=== PATIENT | male | born 1935 | race Caucasian/White ===

== ENCOUNTER 2019-05-29 18:03 | Inpatient (IN) ==
[2019-05-29 18:31] LABS: URINE SOURCE CLEAN CATCH
[2019-05-29 18:49] LABS: BILIRUBIN URINE NEGATIVE (NEGATIVE); BLOOD URINE LARGE (NEGATIVE); COLOR BROWN; GLUCOSE URINE NEGATIVE (NEGATIVE); KETONE URINE NEGATIVE (NEGATIVE); LEUKOCYTES URINE LARGE (NEGATIVE); NITRITE URINE POSITIVE (NEGATIVE); PROTEIN URINE 100 mg/dL (NEGATIVE); SP GRAVITY URINE 1.017; TURBIDITY URINE TURBID (CLEAR); UR EPITHELIAL CELLS <10 /HPF (<10); URINE BACTERIA 3+ /HPF; URINE RBC TNTC /HPF (<10); URINE WBC TNTC /HPF (<10); UROBILINOGEN URINE NORMAL (NORMAL)
[2019-05-29 18:50] LABS: URINE CASTS NONE SEEN; URINE YEAST NONE SEEN
--- NOTE | 2019-05-29 20:04 | Diag Imaging Result Doc PS360 ---
CHEST-1 VIEW - 05/29/2019 INDICATION: sob COMPARISON: 05/28/2014 FINDINGS: The lungs are normally expanded and clear. Heart size and mediastinal contours are normal. No pneumothorax or pleural effusion. IMPRESSION: Negative exam. Electronically signed by Watson Contreras 05/29/2019 8:02 PM
[2019-05-29] MEDS: ROCEPHIN 1 GM in NS 50 ML IV SCH (20:18)
[2019-05-29 20:26] LABS: BASO# 0.06 X1000 (0.0-0.2); BASO% 0.4 % (0.0-0.8); EOS# 0.04 X1000 (0.0-0.7); EOS% 0.3 % (0.0-10.0); HEMATOCRIT 45.2 % (42.0-52.0); HEMOGLOBIN 14.4 g/dL (14.0-18.0); IMM GRAN# 0.03 X1000 (0.0-0.04); IMM GRAN% 0.2 % (0.0-0.5); LYMPH# 2.74 X1000 (1.2-3.4); LYMPH% 18.5 % (20.5-51.1); MCH 30.4 PG (27-31); MCHC 31.9 g/dL (33-37); MCV 95.4 FL (81-99); MONO# 1.21 X1000 (0.11-0.59); MONO% 8.2 % (1.7-9.3); MPV 9.8 FL (7.4-10.4); NEUT# 10.76 X1000 (1.4-6.5); NEUT% 72.4 % (42.2-75.2); PLT 361 X1000 (130-400); RBC 4.74 XMIL (4.7-6.1); RDW 13.4 % (11.5-14.5); WBC 14.84 X1000 (4.8-10.8)
[2019-05-29 20:30] LABS: INR 0.98; PROTIME 13.1 Seconds (11.0-16.0)
[2019-05-29 20:31] LABS: PTT 26.4 Seconds (22.3-41.8)
[2019-05-29 20:38] LABS: AGAP 14; ALB/GLOB RATIO 1.4; ALBUMIN 4.4 g/dL (3.5-5.0); ALKALINE PHOSPHATASE 80 U/L (32-122); BUN 16 mg/dL (8-22); CALCIUM 9.9 mg/dL (8.8-10.2); CHLORIDE 101 mmol/L (98-107); COSMO 285; CREATININE 1.1 mg/dL (0.7-1.2); ESTIMATED GFR > 60; GLUCOSE 115 mg/dL (70-104); GOT 25 U/L (10-34); GPT 27 U/L (10-44); POTASSIUM 5.1 mmol/L (3.5-5.1); SODIUM 142 mmol/L (136-145); TCO2 27 mmol/L (25-35); TOTAL PROTEIN 7.6 g/dL (6.3-8.3)
[2019-05-29 20:43] LABS: CK PROFILE 207 U/L (24-204)
[2019-05-29 21:13] LABS: CK INDEX 2.3 (0.0-2.5); CK-MB 4.75 ng/mL (0.0-5.0)
--- NOTE | 2019-05-29 21:17 | PROVIDER DOCUMENTATION ---
This chart was entered by Anthony Arredondo Scribe, acting as scribe for Terri Ernandez MD. HPI-Male Problem <KatlinRon CunninghamTian - Last Filed: 05/29/19 20:58> - General Source: patient, family - History of Present Illness-Male Radiation: reports: none Quality of Pain: reports: none Severity in ED: reports: mild Onset/Duration: reports: this afternoon Timing: reports: still present Urinary Symptoms: reports: dysuria, frequency, hematuria, hesitancy, retention Associated Symptoms: reports: denies symptoms Similar Symptoms Previously?: Yes Recently seen or treated by another doctor?: Yes <Terri Ernandez - Last Filed: 05/29/19 21:17> - General Chief Complaint: UTI Symptoms Stated Complaint: BLOOD IN URINE Time Seen by Provider: 05/29/19 19:13 Allergies/Adverse Reactions: Patient Allergies Allergy/AdvReac Type Severity Reaction Status Date / Time No Known Allergies Allergy Verified 03/15/18 10:24 Home Medications: Home Medication List Medication Instructions Recorded Confirmed Last Taken Type Glucosamine 2,000 mg PO HS 09/08/12 05/29/19 03/14/18 History RAMIpril [Altace] 10 mg PO HS 09/08/12 05/29/19 03/14/18 History SIMVAstatin [Zocor] 20 mg PO QHS 09/08/12 05/29/19 03/14/18 History Multivitamins/Minerals [Centrum 1 each PO HS 03/15/18 05/29/19 03/14/18 History Silver] - History of Present Illness-Male Nature of Presenting Problem: Pt is a 84 yom who presents to the ED with a CC of UTI symptoms. Pt reports he has had a UTI for approximately eleven days. Pt reports he just finished a 10 day prescription of ciprofloxacin for a previous UTI and states his symptoms have not improved. Pt reports he called Dr. Carlson and states it was almost time for his office to close so he referred the pt to come to the ED. Pt complains of dysuria, hematuria, urinary frequency, and urinary hesitancy. (Terri Ernandez) Review of Systems - Adult - REVIEW OF SYSTEMS - ADULT Constitutional: reports: see HPI Eyes: reports: no symptoms reported Ears, Nose, Mouth & Throat: reports: no symptoms reported Cardiovascular: reports: no symptoms reported Respiratory: reports: no symptoms reported Gastrointestinal: reports: no symptoms reported Genitourinary: reports: see HPI, dysuria, frequency, frequent UTI's, hematuria, urinary retention Musculoskeletal: reports: no symptoms reported Integumentary: reports: no symptoms reported Neurological: reports: no symptoms reported Psychiatric: reports: no symptoms reported Endocrine: reports: no symptoms reported Hematologic/Lymphatic: reports: no symptoms reported Allergic/Immunologic: reports: no symptoms reported All Other Systems: Reviewed and Negative <Terri Ernandez - Last Filed: 05/29/19 21:17> Past History - Adult - PAST MEDICAL HISTORY-ADULT Review of Records: reports: Old Records Reviewed, Nursing Assessment Review, Medications Reviewed, Social history reviewed & non-contributory. Major Childhood Illnesses: reports: denies history Cardiovascular: reports: HTN Respiratory: reports: denies history Gastrointestinal: reports: denies history Obstetrical/Gynecological: reports: denies history Genitourinary: reports: prostate cancer Musculoskeletal: reports: denies history Neurological: reports: denies history Endocrine/Immune: reports: denies history Other Conditions: reports: denies history - PRIOR SURGERIES/PROCEDURES Surgical/Procedure History: reports: orthopedic (extremity) - IMMUNIZATION STATUS Childhood Immunizations: See Nurse Assessment Flu Vaccine: See Nurse Assessment - FAMILY HISTORY Family History: reviewed, not pertinent - SOCIAL HISTORY Smoking: greater than 1 pack/day <Terri Ernandez - Last Filed: 05/29/19 21:17> Physical Exam-General - PHYSICAL EXAM-ADULT Initial Vital Signs Reviewed: Yes - CONSTITUTIONAL General Appearance: alert, mild distress - EYES Eyes: PERRL/EOMI, pink conjunctivae - HEAD, EARS, NOSE, MOUTH & THROAT HENMT: normocephalic/atraumatic, moist mucous membranes - NECK Neck: non-tender, full range of motion - RESPIRATORY Respiratory: chest non-tender, lungs clear, normal breath sounds - CARDIOVASCULAR Cardiovascular: normal peripheral pulses, regular rate, rhythm, no edema - GASTROINTESTINAL (ABDOMEN) Abdominal Exam: non tender, soft - MUSCULOSKELETAL Extremity: normal range of motion, non-tender - SKIN Integumentary: normal color, warm/dry - NEUROLOGIC Neurologic: grossly normal, no motor/sensory deficits - PSYCHIATRIC Psych/Mental Status: normal mood/affect, normal thought content, normal thought process, oriented x 3 <Terri Ernandez - Last Filed: 05/29/19 21:17> Progress - PLAN OF CARE/RESULTS Result Diagrams: 05/29/19 20:00 05/29/19 20:00 - CONSULTS/PCP/HOSPITALIST Notification #1 *Consult/PCP/Hospitalist*: Dr Richter Time Discussed: 20:49 Reason/Comments: UTI Consult Disposition: Admit (admit to hospitalist luigi, Dr Reynolds will see in the morning) #2 Consult: Dr Rios Time Discussed: 20:49 Reason/Comments: UTI Consult Disposition: Admit <Ron Dalal - Last Filed: 05/29/19 20:58> - PLAN OF CARE/RESULTS Result Diagrams: 05/29/19 20:00 05/29/19 20:00 - XRAY 1 XRAY: Bilateral XRAY Study: Chest Impression: See EMR Report ( CHEST-1 VIEW - 05/29/2019 INDICATION: sob COMPARISON: 05/28/2014 FINDINGS: The lungs are normally expanded and clear. Heart size and mediastinal contours are normal. No pneumothorax or pleural effusion. IMPRESSION: Negative exam. Electronically signed by Watson Contreras 05/29/2019 8:02 PM 05/29/192001 Interpreting Physician: Watson Contreras MD Dictated Date/Time: 05/29/191958 cc: Ron Dalal; Grupo Reynolds MD) <Terri Ernandez - Last Filed: 05/29/19 21:17> - PLAN OF CARE/RESULTS Progress/Plan/Lab Results: Vital Signs - 8 hr 05/29/19 18:13 Temperature 98.6 F Pulse Rate 81 Respiratory Rate 15 Blood Pressure 146/81 O2 Sat by Pulse Oximetry 100 Laboratory Results - last 24 hr 05/29/19 05/29/19 05/29/19 18:25 20:00 20:00 WBC 14.84 H RBC 4.74 Hgb 14.4 Hct 45.2 MCV 95.4 MCH 30.4 MCHC 31.9 L RDW Std Deviation 13.4 Plt Count 361 MPV 9.8 Immature Gran % (Auto) 0.2 Neut % (Auto) 72.4 Lymph % (Auto) 18.5 L [place] % (Auto) 8.2 Eos % (Auto) 0.3 Baso % (Auto) 0.4 Immature Gran # (Auto) 0.03 Neut # (Auto) 10.76 H Lymph # (Auto) 2.74 [place] # (Auto) 1.21 H Eos # (Auto) 0.04 Baso # (Auto) 0.06 PT INR PTT (Actin FS) Sodium 142 Potassium 5.1 Chloride 101 Carbon Dioxide 27 Anion Gap 14 BUN 16 Creatinine 1.1 Estimated GFR/1.73 m2 > 60 BUN/Creatinine Ratio 15 Glucose 115 H Calculated Osmolality 285 Calcium 9.9 Total Bilirubin 0.50 AST 25 ALT 27 Alkaline Phosphatase 80 Creatine Kinase 207 H Creatine Kinase Index 2.3 CK-MB (CK-2) 4.75 Troponin T Total Protein 7.6 Albumin 4.4 Globulin 3.2 Albumin/Globulin Ratio 1.4 Plasma Lactate Urine Source CLEAN CATCH Urine Color BROWN Urine Turbidity TURBID Urine pH 6.0 Ur Specific [employer] 1.017 Urine Protein 100 A Ur Glucose (Stick) NEGATIVE Ur Ketones (Stick) NEGATIVE Urine Blood LARGE A Urine Nitrite POSITIVE A Urine Bilirubin NEGATIVE Urobilinogen Dipstick NORMAL Urine Leukocytes LARGE A Urine WBC (Auto) TNTC A Urine RBC (Auto) TNTC A U Epithel Cells (Auto) <10 Urine Bacteria (Auto) 3+ Urine Crystals Not Reportable Small Round Cells Not Reportable Urine Casts NONE SEEN Urine Yeast-like Cells NONE SEEN 05/29/19 05/29/19 05/29/19 20:00 20:00 20:00 WBC RBC Hgb Hct MCV MCH MCHC RDW Std Deviation Plt Count MPV Immature Gran % (Auto) Neut % (Auto) Lymph % (Auto) [place] % (Auto) Eos % (Auto) Baso % (Auto) Immature Gran # (Auto) Neut # (Auto) Lymph # (Auto) [place] # (Auto) Eos # (Auto) Baso # (Auto) PT 13.1 INR 0.98 PTT (Actin FS) 26.4 Sodium Potassium Chloride Carbon Dioxide Anion Gap BUN Creatinine Estimated GFR/1.73 m2 BUN/Creatinine Ratio Glucose Calculated Osmolality Calcium Total Bilirubin AST ALT Alkaline Phosphatase Creatine Kinase Creatine Kinase Index CK-MB (CK-2) Troponin T < 0.010 Total Protein Albumin Globulin Albumin/Globulin Ratio Plasma Lactate 1.6 Urine Source Urine Color Urine Turbidity Urine pH Ur Specific [employer] Urine Protein Ur Glucose (Stick) Ur Ketones (Stick) Urine Blood Urine Nitrite Urine Bilirubin Urobilinogen Dipstick Urine Leukocytes Urine WBC (Auto) Urine RBC (Auto) U Epithel Cells (Auto) Urine Bacteria (Auto) Urine Crystals Small Round Cells Urine Casts Urine Yeast-like Cells Orders Category Date Time Status Cardiac Monitoring DIRECTED Care 05/29/19 19:41 Active IV Insertion ORDERED Care 05/29/19 19:41 Active Notify MD of + Sepsis Screen NOW Care 05/29/19 19:41 Active Notify Physician As Ordered Care 05/29/19 19:41 Active CHEST-1 VIEW [RAD] Stat Exams 05/29/19 19:41 Completed BLOOD CULTURE [BLDCUL] Stat Lab 05/29/19 20:02 Results CBC WITH DIFF [HEME] Stat Lab 05/29/19 20:00 Completed CK PROFILE [SP CHEM] Stat Lab 05/29/19 20:00 Completed COMPREHENSIVE METABOLIC PANEL [CHEM] Stat Lab 05/29/19 20:00 Completed LACTATE, PLASMA [CHEM] Q3H Lab 05/29/19 20:00 Completed PROTIME WITH INR [COAG] Stat Lab 05/29/19 20:00 Completed PTT [COAG] Stat Lab 05/29/19 20:00 Completed TROPONIN T Stat Lab 05/29/19 20:00 Completed URINALYSIS W/POSS RFLX CULT [URINALYSIS] Stat Lab 05/29/19 18:25 Completed URINE CULTURE [RM] Routine Lab 05/29/19 20:08 Received URINE MANUAL MICROSCOPIC [URINALYSIS] Stat Lab 05/29/19 18:25 Completed CefTRIAXONE [Rocephin] 1 gm Med 05/29/19 20:15 Active 0.9% Sodium Chloride Inj [Ns] 50 ml IV Q24H Oxygen Device Stat Oth 05/29/19 19:41 Active patient was seen by myself and Dr Ernandez. patient verbalizes an understanding of POC and treatment rendered here today. (Ron Dalal) Saw patient with DIGITAL EDITOR Octavio Dalal. Patient with recurrent UTI. Last urine cx only had 10-20k colony count and susceptible to levaquin. Just came off Cipro. Will need to admit for failure of outpatient treatment and WBC to 15k. LA normal. Vitals stable with no SIRS criteria. Octavio Dalal spoke to hospitalist greenstone polisher operator and he was accepted for admission. Urine cx pending. Further orders to be placed by their team. (Terri Ernandez) Departure - Departure Time of Disposition Decision: 20:50 Certified Medical Emergency: Emergent <Ron Dalal - Last Filed: 05/29/19 20:58> - Departure Date of Disposition Decision: 05/29/19 Certified Medical Emergency: Emergent - Critical Care Note This patient required my direct & personal management of CC.: No <Terri Ernandez - Last Filed: 05/29/19 21:17> - Departure DIAGNOSIS: Recurrent UTI (urinary tract infection) Disposition: ADMITTED INPATIENT 09 Condition: Critical Additional Instructions: ED Follow Up Instructions: You have been treated by a care provider in the Emergency Department. These instructions are being provided to you so you can have an understanding of how to care for yourself upon discharge. Upon discharge from the Emergency Department, you are responsible for making arrangements for follow-up care by a physician of your choice. Take all prescribed medications as directed. Return to the Emergency Department immediately for any new or worsening symptoms. You may call the Physician Referral phone number at [phone] to obtain a list of Physicians who are taking new patients. Referrals and Follow-Ups: Grupo Reynolds MD [Primary Care Provider] - Attestation - Physician/ VALERIO Attestation Patient care was provided by Advanced Practice Provider:: Yes Advanced Practice Provider:: Ron Dalal Advanced Practice Provider documentation review:: The Mid-level provider documentation, treatment plan and medical decision making was reviewed by the physician who agrees with all treatment and medical decision making by the P. <Ron Dalal - Last Filed: 05/29/19 20:58> - Physician/ VALERIO Attestation Patient care was provided by Advanced Practice Provider:: No The physician spent face to face time with patient:: Yes Advanced Practice Provider documentation review:: Supervising physician onsite and consulted in the evaluation and care of this patient. The physician did have a face to face encounter with the patient. <Terri Ernandez - Last Filed: 05/29/19 21:17> This chart was documented by the indicated scribe, (Anthony Arredondo Scribe) and accurately reflects the services I performed and decisions made by me, Terri Ernandez MD, as attested by the provider's signature.
[2019-05-29] MEDS ORDERED: ZOFRAN IV PRN (23:59)
[2019-05-29] MEDS ORDERED: NS 500 ML IV ONE (23:59)
[2019-05-29] MEDS ORDERED: TYLENOL PO PRN (23:59)
--- NOTE | 2019-05-30 02:15 | HISTORY AND PHYSICAL ---
PRIMARY CARE PROVIDER: Jere Agosto MD CHIEF COMPLAINT: Blood in urine. HPI: Mr. Vivar is an 84-year-old male who and seen Dr. Agosto around 2 weeks ago. He just finished up a 10-day prescription of ciprofloxacin. Stated that he had blood in his urine today. He had called Dr. Carlson who referred him to come into the emergency room. He had complains of dysuria, hematuria, urinary frequency and urinary hesitancy. He does have a past medical history of prostate cancer status post TURP, hypertension, and prediabetes. Urine collected in the emergency room showed a nitrite positive leuk esterase positive urinary tract infection. He will be admitted for further evaluation and treatment. PAST MEDICAL HISTORY: See HPI. PREVIOUS SURGICAL HISTORY: Prostate biopsy, TURP, right index finger amputation, sinus surgery, back surgery. SOCIAL HISTORY: Lives with his . Smokes 2-3 cigarettes per day. No alcohol. No illicit drugs. FAMILY HISTORY: Mother and father both had diabetes mellitus. Father from myocardial infarction. Mother from nonspecific cancer. ALLERGIES: NO KNOWN DRUG ALLERGIES. HOME MEDICATIONS: 1. Glucosamine 2000 mg p.o. at bedtime. 2. Centrum multivitamin 1 p.o. at bedtime. 3. Ramipril 10 mg p.o. at bedtime. 4. Simvastatin 20 mg p.o. at bedtime. REVIEW OF SYSTEMS: A 14-point review of systems conducted with the patient. Pertinent positives listed above in the HPI. All other systems reviewed and found to be negative. PHYSICAL EXAMINATION: VITAL SIGNS: Temperature 98.6, pulse 81, respirations 15, blood pressure 137/81, oxygen saturation 95% on room air. GENERAL: Pleasant 84-year-old male lying in the ER stretcher. Answers all questions appropriately. He is alert and oriented x3. is at bedside and very attentive. HEENT: Head is atraumatic, normocephalic. Pupils equal, round, reactive to light. Extraocular eye movements intact. Sclera is anicteric. Conjunctiva is pink. Oral mucosa is moist. NECK: Supple, no JVD, no thyromegaly. Trachea is midline. No cervical lymphadenopathy. CARDIAC: S1, S2 appreciated. No murmurs, gallops, rubs. LUNGS: Clear to auscultation bilaterally. No rhonchi, wheezes, rales. Symmetric rise and fall respirations. ABDOMEN: Soft, nondistended, nontender. Bowel sounds present all 4 quadrants. Normoactive. No pulsatile masses or organomegaly. BACK: No CVA tenderness. No vertebral tenderness. EXTREMITIES: No clubbing, cyanosis, or edema. 2+ pedal pulses. NEUROLOGICAL: Alert and oriented x3. No focal neuro deficits. Otherwise nonfocal examination. DIAGNOSTIC DATA: Chest x-ray grossly normal. LABORATORY DATA: WBC 14.84, hemoglobin 14.4, hematocrit 45.2, platelet count 361,000. Coags within normal limits. Sodium 142, potassium 5.1, chloride 101, carbon dioxide 27, BUN 16, creatinine 1.1, glucose 115. CK 207. Urine nitrite positive, positive for hematuria, leuk esterase positive with too numerous to count WBCs and 3+ bacteria. ASSESSMENT AND PLAN: 1. Urinary tract infection with failed outpatient treatment. Will give Rocephin 1 gram IV q.24h. Urine cultures are pending. 2. Hypertension. Continue home medications. 3. Hyperlipidemia. Continue statin. 4. Mild hyperglycemia. Patient states that he is prediabetic. Check hemoglobin A1c. Place on diabetic diet. 5. Further recommendations per patient's clinical course. Dictated by PHILIP Giles for Gary Riso MD cc: PHILIP Giles MD Scott A. Matthews, MD Stephen W. Harbin, MD Patient presents with hematuria. He failed OP treatment for uti. UA shows a picture of uti. His past medical history is significant for prostate ca , TURP, prediabetes, hypertension. I agree with the assessment and plan of the HAND BLOCKER. Dr.Okinedo GANDARA
--- NOTE | 2019-05-30 12:39 | PROGRESS NOTE ---
DATE: 05/30/2019 SUBJECTIVE: The patient is overall feeling some better. He has not noticed any gross hematuria earlier today. OBJECTIVE: Vitals: Afebrile, pulse 65, respirations 20, blood pressure 142/63, O2 saturation on room air 98%. CV: RRR. Lungs: Clear. Back: No CVA tenderness. Abdomen: Nontender, nondistended. Extremities: No edema. Neurologic: Nonfocal. Cranial nerves intact. LABORATORY DATA: Laboratory data reviewed from admission showing white count of 14,000 with 72% neutrophils, hemoglobin 14.4, platelets 361,000. CMP is unremarkable. Lactate 1.6. TSH 3.07. A1c 6.0. Urine cultures growing out gram-negative rods this occasion, whereas 2 weeks ago we treated him with Cipro and he only grew out group B strep at that time, which was sensitive to Levaquin and quinolones. ASSESSMENT: 1. Gram-negative UTI. 2. History of prostate cancer, followed by Dr. Carlson. 3. Hypertension. 4. Hyperlipidemia. 5. Diabetes mellitus, diet controlled. PLAN: Continue low-dose IV fluids. Continue his home medications. We will ambulate the patient and continue pneumatic compression hose. Continue IV Rocephin. He received one dose last night, will get another dose this evening. Continue to follow the cultures. If he does well, likely discharge tomorrow. Continue to follow blood cultures at this time. cc: Grupo Reynolds MD
[2019-05-30] MEDS: ZOCOR PO SCH (20:09)
[2019-05-30] MEDS: CENTRUM SILVER PO SCH (20:09)
[2019-05-30] MEDS: ALTACE PO SCH (20:09)
[2019-05-30] MEDS: GLUCOSAMINE PO SCH (20:09)
[2019-05-30] MEDS: ROCEPHIN 1 GM in NS 50 ML IV SCH (20:10)
[2019-05-31 07:07] LABS: BASO# 0.06 X1000 (0.0-0.2); BASO% 0.5 % (0.0-0.8); EOS# 0.08 X1000 (0.0-0.7); EOS% 0.7 % (0.0-10.0); HEMATOCRIT 42.2 % (42.0-52.0); HEMOGLOBIN 13.6 g/dL (14.0-18.0); IMM GRAN# 0.03 X1000 (0.0-0.04); IMM GRAN% 0.3 % (0.0-0.5); LYMPH# 2.68 X1000 (1.2-3.4); LYMPH% 24.6 % (20.5-51.1); MCH 30.8 PG (27-31); MCHC 32.2 g/dL (33-37); MCV 95.7 FL (81-99); MONO# 0.97 X1000 (0.11-0.59); MONO% 8.9 % (1.7-9.3); MPV 9.8 FL (7.4-10.4); NEUT# 7.09 X1000 (1.4-6.5); PLT 315 X1000 (130-400); RBC 4.41 XMIL (4.7-6.1); RDW 13.3 % (11.5-14.5); WBC 10.91 X1000 (4.8-10.8)
[2019-05-31 07:19] LABS: AGAP 13; BUN 17 mg/dL (8-22); CALCIUM 9.5 mg/dL (8.8-10.2); CHLORIDE 99 mmol/L (98-107); COSMO 275; ESTIMATED GFR > 60; GLUCOSE 124 mg/dL (70-104); POTASSIUM 4.9 mmol/L (3.5-5.1); SODIUM 136 mmol/L (136-145); TCO2 24 mmol/L (25-35)
--- NOTE | 2019-05-31 09:08 | PROGRESS NOTE ---
DATE: 05/31/2019 SUBJECTIVE: Patient has redeveloped pronounced gross hematuria. He is having some urinary hesitancy as well as some clots are being passed. OBJECTIVE: Afebrile. Vital signs stable.CV: RRR. No murmur. Lungs: CTA. Abdomen: Nontender. Back: No CVA tenderness. Extremities: No calf tenderness, cords, or edema. Neurologic: Cranial nerves are intact. No focal deficits. LABORATORY: Urine cultures growing out Escherichia coli sensitive to Cefazolin and Macrobid, not sensitive to quinolones. White count has decreased from 14.8 to 10.9, hemoglobin 13.6, and platelets 315,000. PT and PTT normal. BMP normal. Creatinine 1.0. ASSESSMENT: 1. Escherichia coli UTI. 2. Gross hematuria. 3. Known prostate cancer on observation therapy per Dr. Carlson. 4. Hypertension. 5. Hypercholesterolemia. 6. Type 2 diabetes mellitus, diet controlled. PLAN: Continue IV Rocephin and low-dose IV fluids. We will ask Dr. Carlson to see the patient about the gross hematuria for recommendations. If he feels appropriate, might be able to discharge this evening potentially if he has no plans that prohibit this. cc: Grupo Reynolds MD
--- NOTE | 2019-05-31 19:28 | CONSULTATION ---
DATE OF CONSULTATION: 05/31/2019 ATTENDING AND REFERRING PHYSICIAN: Dr. Reynolds. CHIEF COMPLAINT: Hematuria. HISTORY OF PRESENT ILLNESS: This 84-year-old male states he had a several day history of hematuria. He came to the emergency room where a urine culture revealed E. coli, and he was admitted. His urine cleared yesterday, but then early this morning he again started passing clots. He has a history of adenocarcinoma of the prostate, Felda grade 3 + 3, that was just in a very small focus of the prostate. He is on active surveillance and has been for nearly 3 years. His latest PSA in November 2018 was 10.2. This is stable. The patient has a long history of cigarette use. He states that about 30 years ago, he had blood in his urine and had some type of surgery that he does not recall, but thinks it was a TURP. PAST MEDICAL HISTORY: 1. Prostate cancer, on active surveillance. 2. Hypertension. 3. Elevated cholesterol. CURRENT MEDICATIONS: Documented in the chart and does not include any anticoagulants, other than an aspirin (81 mg) a day. PAST SURGICAL HISTORY: 1. Right TKA. 2. Prostate biopsies times 4, the last in October 2017 as part of the active surveillance protocol. 3. Right index finger amputation. 4. Sinus surgery. 5. Lower back surgery. SOCIAL HISTORY: Denies tobacco use, but does smoke cigarettes. ALLERGIES: No known drug allergies. REVIEW OF SYSTEMS: Usually in good health. He denies any problems with diabetes, strokes, seizures, recent pulmonary or bowel problems. PHYSICAL EXAMINATION: General: A normally developed, well nourished, age apparent, white male, oriented in all ways and cooperative. HEENT: Normal for age. Lungs: Clear. Cardiovascular: Regular rate and rhythm. Abdomen: Mildly protuberant, soft, nontender. No hepatosplenomegaly or masses. Normal bowel sounds. : Normal male. Both testes down. Scrotal exam is normal. Rectal: Deferred until surgery. Extremities: No clubbing, cyanosis, or edema. Neurologic: No focal deficits. LABORATORY EVALUATION: He has a white count of 10.9, a hemoglobin of 13.6, hematocrit of 42.2, and platelets are 315,000. Serum electrolytes are normal. BUN 17, creatinine 1.0. Urine culture grew E coli that is sensitive to cephalosporins, and he is on Rocephin. IMPRESSION: 1. Gross hematuria. 2. Urinary tract infection. 3. Long history of tobacco use. 4. History of prostate cancer, on active surveillance. PLAN: 1. Cystoscopic exam, clot irrigation if needed. 2. Bilateral retrograde ureteral pyelograms and bladder biopsies as needed. 3. The planned procedure, benefits versus risks, possible complications, including, but not limited to, continued bleeding, infection, not finding an abnormality, finding bladder tumors with need for further treatment, was discussed. They seemed to understand and desired to proceed. cc: MD Grupo Jones MD
[2019-05-31] MEDS: ROCEPHIN 1 GM in NS 50 ML IV SCH (20:31)
[2019-05-31] MEDS: CENTRUM SILVER PO SCH (20:32)
[2019-05-31] MEDS: ZOCOR PO SCH (20:32)
[2019-05-31] MEDS: GLUCOSAMINE PO SCH (20:32)
[2019-05-31] MEDS: ALTACE PO SCH (20:33)
[2019-06-01] MEDS ORDERED: GENTAMICIN ONE (07:18)
[2019-06-01] MEDS ORDERED: DIPRIVAN 1% ONE (07:21)
[2019-06-01] MEDS ORDERED: XYLOCAINE-MPF 2% ONE (07:21)
[2019-06-01] MEDS ORDERED: EPHEDRINE ONE (07:35)
[2019-06-01] MEDS ORDERED: SODIUM CHLORIDE 0.9% 10 ML ONE (07:35)
[2019-06-01] MEDS ORDERED: ZOFRAN ONE (07:44)
--- NOTE | 2019-06-01 08:24 | Diag Imaging Result Doc PS360 ---
EXAM: RETROGRADES 2 OR 3 FILMS HISTORY: BLADDER TUMOR, HEMATURIA, UTI TECHNIQUE: 37 films submitted COMPARISON: None. FINDINGS: Early films have retrograde filling of the left ureter. No obstruction to retrograde flow. No filling defect or stricture. Normal distention to the renal pelvis and calyces. Later films have retrograde filling of the right ureter. No obstruction to retrograde flow. No filling defect or stricture. Normal distention of the renal pelvis and calyces. Normal drainage. IMPRESSION: Normal retrograde exam. Electronically signed by Coy Cleveland 06/01/2019 8:21 AM
[2019-06-01] MEDS: PERIDEX MT SCH ×2 (09:02→20:42)
--- NOTE | 2019-06-01 17:10 | PROGRESS NOTE ---
DATE: 06/01/2019 SUBJECTIVE: Patient without complaints. He had cystoscopy earlier today with findings of a kidney stone by report. Blood cultures x2 have remained negative. Urine culture grew out Escherichia coli sensitive to cefazolin and Macrobid. OBJECTIVE: Afebrile. Vital signs stable.Cardiovascular: RRR. Lungs: Clear. Abdomen: Nontender, nondistended. Extremities: No calf tenderness, cords, or edema. Neurologic: Cranial nerves are intact. No focal deficits. Moves all extremities well. LABORATORY DATA: Lab data from yesterday reviewed. ASSESSMENT: 1. Escherichia coli urinary tract infection. 2. Gross hematuria secondary to kidney stone found today on cystoscopy per Dr. Carlson. 3. Known prostate cancer, on observation therapy per Dr. Carlson. 4. Hypertension. 5. Hypercholesterolemia. 6. Diet-controlled type 2 diabetes mellitus. PLAN: Continue IV Rocephin, low-dose IV fluids. Prabhakar catheter is in place per Dr. Carlson. Dr. Carlson has recommended the patient remain in the hospital overnight with possible discharge as early as tomorrow. cc: Grupo Reynolds MD
--- NOTE | 2019-06-01 17:58 | OPERATIVE NOTE ---
PROCEDURE DATE: 06/01/2019 SURGEON: Az Carlson MD PREOPERATIVE DIAGNOSIS: 1. Gross hematuria with clots. 2. Enlarged prostate with obstructive voiding. 3. History of prostate cancer on active surveillance. POSTOPERATIVE DIAGNOSIS: 1. Gross hematuria with clots. 2. Enlarged prostate with obstructive voiding. 3. History of prostate cancer on active surveillance. PROCEDURE PERFORMED: Cystoscopic exam, clot irrigation, bilateral retrograde ureteral pyelograms, cystolitholapaxy, cold cup biopsies and transurethral resection of prostate nodules. ANESTHESIA: General via laryngeal mask. FINDINGS: Cystoscopic exam: Urethra-greater than 21 [place] without stricture. Prostate-status post TURP with marked regrowth of lateral lobes, and nodules. There was a stone encrusted nodule at the 12 o'clock and 9 o'clock position. There was a large stone in the bladder (about 2 cm). There were grade 3 trabeculations, small cellules and diverticula, no papillary lesions. Rectal exam reveals a prostate that is firm but no nodules, about 60 to 70 g. INDICATION FOR PROCEDURE: This 84-year-old male with history of prostate cancer on active surveillance for the last 3 years developed intermittent gross hematuria. His urine culture grew E. coli. He has been on antibiotics and his urine initially cleared but then he started having bleeding again. He is not anticoagulated. DESCRIPTION OF PROCEDURE: After informed consent was obtained the patient, him receiving IV antibiotics, he was taken the main OR cystoscopy room, placed in the supine position. General anesthesia via laryngeal mask was achieved. He was then placed in the low lithotomy position and prepped and draped in the usual sterile fashion for cystoscopic exam. A 21-[place] cystoscope was passed the patient's urethra, prostate, and in bladder, findings noted above. The clots were irrigated from the bladder. When the bladder was clear an 8-[place] cone-tipped catheter was passed through the cystoscope, engaged left ureteral orifice, contrast was injected. Right side was accomplished similarly. Again, there were no filling defects on either side but there was significant J-hooking of the distal ureters. The 8-[place] cone-tipped catheter was removed. The grasping forceps were placed and the large stone in the bladder was crushed and removed from the bladder. After the stone was removed the cold cup biopsy forceps were placed and a cold cup biopsy from the trigone and proximal prostatic urethra was taken and sent to Pathology in separate containers. The bladder was distended, cystoscope was removed and a 25-[place] continuous flow resectoscope sheath was placed. A thin gyrus loop electrode was placed and the nodule at the 9 o'clock position that was stone encrusted was resected and sent to Pathology in 1 container and the large nodule at the 12 o'clock position of the bladder neck was resected and sent to Pathology in its own container. Hemostasis was achieved from all excision sites and biopsy sites with the electrocautery. At completion, both ureteral orifices were intact. The bladder was left distended. The resectoscope was removed. A 22-[place], 3-way Prabhakar catheter was passed through the patient's urethra and into the bladder. The irrigation port was plugged. 20 mL of sterile water were placed in the Prabhakar's balloon. The efflux was clear. Rectal exam was performed. Estimated blood loss was about 1 mL during the case. He tolerated the procedure well, was taken to recovery room in good condition. cc: MD Grupo Jones MD
[2019-06-01] MEDS: GLUCOSAMINE PO SCH (20:42)
[2019-06-01] MEDS: CENTRUM SILVER PO SCH (20:42)
[2019-06-01] MEDS: ALTACE PO SCH (20:42)
[2019-06-01] MEDS: ROCEPHIN 1 GM in NS 50 ML IV SCH (20:43)
[2019-06-01] MEDS: ZOCOR PO SCH (20:43)
[2019-06-01] MEDS ORDERED: FLOMAX PO SCH (21:00)
[2019-06-02] MEDS: PERIDEX MT SCH (10:49)
[2019-06-02 11:46] VITALS: BP 127/60
--- NOTE | 2019-06-02 14:06 | DISCHARGE SUMMARY ---
ADMISSION DATE: 05/30/2019 DISCHARGE DATE: 06/02/2019 DIAGNOSES: 1. Complicated Escherichia coli urinary tract infection. 2. Gross hematuria with clots thought multifactorial related to prostate cancer, large bladder stone, urinary tract infection. 3. Prostate cancer followed by Dr. Carlson on expectant therapy. 4. Hypertension. 5. Hypercholesterolemia. 6. Type 2 diabetes, diet-controlled. CONSULTANTS: Az Carlson MD, Urology. PROCEDURES: 1. Chest x-ray, negative exam. 2. Retrograde pyelogram, normal. 3. Cystoscopic exam with clot irrigation, bilateral retrograde ureteral pyelograms, cystolitholapaxy, cold cut biopsies, and TURP of prostate nodules. REASON FOR ADMISSION AND HOSPITAL COURSE: The patient is an 84-year-old white male, came in with gross hematuria. He had just completed a 10 day course of Cipro for group B Strep UTI diagnosed about 2 weeks prior to this admission outpatient. He is followed by Dr. Carlson for known prostate cancer with observation therapy. The patient had the gross hematuria and was found to have recurrent UTI. Urine culture grew out Escherichia coli sensitive to Rocephin he was placed on on admission and also sensitive to Macrobid. The patient continued to have some gross hematuria although it cleared briefly. Early on, Dr. Carlson was then consulted and saw the patient and did retrograde pyelograms, which were negative. Then, he underwent cystoscopic exam and large bladder stone was noted and that was broken up and removed and the patient had cold cut biopsies of 2 prostate nodules present. Irrigation of his bladder was performed and the patient was passing some blood at discharge but this was rather mild and he was doing well in that regard. He had remained on his home medications of glucosamine, multivitamin, Altace 10 mg, and Zocor 20 mg daily, and Dr. Carlson had added Flomax at discharge. We changed to Macrobid 1 p.o. b.i.d. for 1 week to complete 10 day course of antibiotics, and he will follow up with Dr. Carlson in 6 days. Other medications will be glucosamine 2000 mg daily, multivitamin daily, Altace 10 mg daily, Zocor 20 mg nightly, Flomax 0.4 mg daily. He will follow up with me as needed. Blood cultures x2 were negative during the hospitalization. Other pertinent labs are white count on admission 14, defervesced to 10.9, hemoglobin was normal at 14.4, platelets 315. Creatinine was normal at 1.0, sodium 136, potassium 4.9. Liver function tests were normal. Troponin less than 0.01. Plasma lactate 1.6. TSH 3.07. PT/PTT normal. Exam at discharge was done and shows regular rate and rhythm on his CV exam. Lungs clear. Abdomen soft, nontender, nondistended. Extremities: No edema, calf tenderness, or cords. Neurologic: Cranial nerves are intact. No focal deficits. cc: MD Az Ma MD
== END 2019-06-02 13:16 | disposition home or self-care (01) | DRG 669 ==
LOC: ED 18:03 → 4N 05-30 00:22 → SUATTDRO 05-30 00:22
PROVIDERS: ADMIT Family Medicine; ATTEND Family Medicine